=== PATIENT | female | born 1950 | race Caucasian/White ===

== ENCOUNTER 2017-01-21 23:39 | Emergency (ER) | payer SELFPAY ==
[2017-01-21 23:50] VITALS: BP 155/85; PULSE 83; RESP 16; TEMP 98.4; O2SAT 94
--- NOTE | 2017-01-21 23:51 | EDPHY ---
H & P Stated Complaint: left upper molar pain since yesterday HPI/ROS: HPI CHIEF COMPLAINT: Dental pain x 24 hours HISTORY OF PRESENT ILLNESS: Patient very pleasant 66-year-old female presents to the emergency room left upper jaw and dental pain. 24 hours of present pain. Sharp stabbing. No significant swelling. No fever. She has been in [place] for 3 weeks she is visiting from out of town she lives in [facility]. at bedside. She due to go back home on Sunday. Past Medical History: Depression insomnia, high cholesterol Past Surgical History: Multiple dental surgeries Social History: denies daily use drugs alcohol tobacco products Family History: contributory ROS REVIEW OF SYSTEMS: A comprehensive 10 point review of systems is otherwise negative aside from elements mentioned in the history of present illness. Exam Constitutional triage nursing summary reviewed, vital signs reviewed, awake/ alert. Eyes normal conjunctivae and sclera, EOMI, PERRLA. HENT oropharynx: multiple dental caries. multiple fillings. Left upper jaw line is not: Swollen, no gumline abscess, tender palpation of the posterior molar the left side, possible atypical infection, no signs of Sd's, no signs of significant oropharyngeal infection, uvula midline, a normal inspection , atraumatic, moist mucus membranes, no epistaxis, neck supple/ no meningismus, no raccoon eyes. Respiratory clear to auscultation bilaterally, normal breath sounds, no respiratory distress, no wheezing. Cardiovascular rate normal, regular rhythm, no murmur, no edema, distal pulses normal. Gastrointestinal soft, non-tender, no rebound, no guarding, normal bowel sounds, no distension, no pulsatile mass. Genitourinary no CVA tenderness. Musculoskeletal no midline vertebral tenderness, full range of motion, no calf swelling, no tenderness of extremities, no meningismus, good pulses, neurovascularly intact. Skin pink, warm, & dry, no rash, skin atraumatic. Neurologic awake, alert and oriented x 3, AAOx3, moves all 4 extremities equally, motor intact, sensory intact, CN II-XII intact, normal cerebellar, normal vision, normal speech. Psychiatric normal mood/affect. Heme/Lymph/Immune no lymphadenopathy. Differential Diagnosis: includes but is not limited to in a particular order dental infection, apical abscess, pulpitis, dental decay, dental fracture, caries Medical Decision Making: Plan for patient started on pen VK, Hills for pain control. Take home pack. Follow up with dentistry tomorrow which she already has appointment with she tells me. Return emergency room if there is any worsening symptoms questions or concerns Source: Patient - Personal History Current Tetanus/Diphtheria Vaccine: Yes Current Tetanus Diphtheria and Acellular Pertussis (TDAP): Yes Tetanus Vaccine Date: 2014 - Medical/Surgical History Hx Asthma: No Hx Chronic Respiratory Disease: No Hx Diabetes: No Hx Cardiac Disease: No Hx Renal Disease: No Hx Cirrhosis: No Hx Alcoholism: No Hx HIV/AIDS: No Hx Splenectomy or Spleen Trauma: No Other PMH: depression, insomnia, hi chol - Social History Smoking Status: Never smoked Constitutional: Initial Vital Signs Temperature (C) 36.9 C 01/21/17 23:47 Heart Rate 83 01/21/17 23:47 Respiratory Rate 16 01/21/17 23:47 Blood Pressure 155/85 H 01/21/17 23:47 O2 Sat (%) 94 01/21/17 23:47 O2 Delivery Mode Room Air Allergies/Adverse Reactions: No Known Allergies Allergy (Unverified 01/21/17 23:46) Home Medications: Medication Instructions Recorded CLONAZEPAM 01/21/17 Euthyrox 01/21/17 Hydrocodone/APAP 5/325 [Hills 1 - 2 tab PO Q4H PRN #14 tab 01/21/17 5/325] Lipitor 01/21/17 Penicillin V Potassium [Penicillin 500 mg PO BID #14 tab 01/21/17 VK] Seroquel 01/21/17 traMADol 01/21/17 Departure - Departure Disposition: Home, Routine, Self-Care Clinical Impression: Pain, dental Condition: Good Instructions: Toothache (ED) Additional Instructions: 1. Please follow up with your dentist. 2. Return emergency room if you have any worsening symptoms questions or concerns. Referrals: BHAVANI DUDLEY [Other] - As per Instructions Prescriptions: Hydrocodone/APAP 5/325 [Hills 5/325] 1 - 2 tab PO Q4H PRN #14 tab PRN Reason: Pain, Moderate Penicillin V Potassium [Penicillin VK] 500 mg PO BID #14 tab
[2017-01-21] MEDS ORDERED: HYDROCODONE/APAP 5/325 TAB PO ONE (23:54)
[2017-01-21] MEDS ORDERED: PENICILLIN VK 500 MG TAB PO ONE (23:54)
[2017-01-21] MEDS ORDERED: HYDROCOD/APAP 5/325 PREPACK#6 BTL TAKEHOME ONE (23:54)
[2017-01-21] MEDS ORDERED: PENICILLIN VK 250 MG TAB ONE (23:58)
== END 2017-01-22 00:09 | disposition home or self-care (01) ==
DX: K08.89 Other specified disorders of teeth and supporting structures (principal)